=== PATIENT | female | born 1975 | race Caucasian/White ===

== ENCOUNTER 2021-01-01 02:28 | Emergency (ER) | payer MEDICAID ==
[2021-01-01] MEDS ORDERED: Sodium Chloride 0.9% 10 ML Syringe FLUSH PRN (02:54)
[2021-01-01] MEDS ORDERED: Clindamycin Phosphate in D5W 900 MG in Premix Bag 1 BAG IV ONE ×2 (02:54)
[2021-01-01] MEDS ORDERED: HYDROmorphone 0.5 MG/0.5 ML Syringe IVPUSH ONE (02:54)
[2021-01-01] MEDS ORDERED: Ketorolac 30 MG/ML SDV IVPUSH SCH (03:00)
--- NOTE | 2021-01-01 03:03 | EDM.PDOC ---
ED HPI GENERAL MEDICAL PROBLEM - General Chief Complaint: ENT Problem Stated Complaint: TOOTH PAIN Time Seen by Provider: 01/01/21 02:45 Source of Information: Reports: Patient, RN Notes Reviewed - History of Present Illness INITIAL COMMENTS - FREE TEXT/NARRATIVE: 45 yr old female comes in with dental pain that started about 3 days ago. Has become much worse yesterday and this morning. No fever or chills. Swelling has started in the last 12 to 24 hrs. Left Lower Tooth/Teeth Pain Score (Numeric/FACES): 10 - Related Data Allergies Allergy/AdvReac Type Severity Reaction Status Date / Time bupropion [From Wellbutrin] Allergy Rash Verified 01/01/21 02:42 Home Meds: Home Meds Clindamycin HCl 300 mg PO Q6HR #30 capsule 01/01/21 [Rx] Hydrocodone/Acetaminophen [HYDROcodone-Acetaminophen 5-325 MG] 1 each PO Q4HR PRN #20 tab 01/01/21 [Rx] ED ROS ENT - Review of Systems Review Of Systems: See Below Constitutional: Denies: Fever, Chills HEENT: Reports: Dental Pain Respiratory: Reports: No Symptoms Cardiovascular: Reports: No Symptoms GI/Abdominal: Reports: No Symptoms Musculoskeletal: Reports: No Symptoms Skin: Denies: Rash Neurological: Reports: No Symptoms ED EXAM, ENT - Physical Exam Exam: See Below General Appearance: Alert, Anxious, Moderate Distress Mouth/Throat: Dental Pain (there is gum swelling of L lower post molar laterally suggestive of early abcess formation) Head: Facial Swelling (L lower jaw) Respiratory/Chest: No Respiratory Distress Extremities: Normal Inspection Skin: Warm, Dry, Normal Color, No Rash Course - Vital Signs Last Recorded V/S: Last Vital Signs Temp 97.5 F 01/01/21 02:36 Pulse 100 01/01/21 02:36 Resp 18 01/01/21 02:36 BP 140/97 H 01/01/21 02:36 Pulse Ox 100 01/01/21 02:36 - Orders/Labs/Meds Orders: Active Orders 24 hr Category Date Time Status Peripheral IV Insertion Adult [OM.PC] Stat Oth 01/01/21 02:53 Ordered Meds: Medications Discontinued Medications Generic Name Dose Route Start Last Admin Trade Name Freq PRN Reason Stop Dose Admin Hydromorphone HCl 0.5 mg 01/01/21 02:54 01/01/21 03:08 Hydromorphone 0.5 Mg/0.5 Ml Syringe IVPUSH 01/01/21 02:55 0.5 mg ONETIME ONE Administration Clindamycin Phosphate 900 mg/ 50 mls @ 100 mls/hr 01/01/21 02:54 01/01/21 03:11 Premix IV 01/01/21 03:23 100 mls/hr ONETIME ONE Administration Ketorolac Tromethamine 30 mg 01/01/21 03:00 01/01/21 03:09 Ketorolac 30 Mg/Ml Sdv IVPUSH 30 mg ONETIME CHRISTEN Administration Sodium Chloride 10 ml 01/01/21 02:54 01/01/21 03:13 Sodium Chloride 0.9% 10 Ml Syringe FLUSH 10 ml ASDIRECTED PRN Administration Keep Vein Open Departure - Departure Time of Disposition: 03:30 Disposition: Home, Self-Care 01 Condition: Fair Clinical Impression: Pain, dental, Dental abscess - Discharge Information Prescriptions: Clindamycin HCl 300 mg PO Q6HR #30 capsule Hydrocodone/Acetaminophen [HYDROcodone-Acetaminophen 5-325 MG] 1 each PO Q4HR PRN #20 tab PRN Reason: Pain Instructions: Dental Abscess Referrals: PCP,Not In Area [Primary Care Provider] - Forms: ED Department Discharge Additional Instructions: clindamycin 300 mg 4 times daily for 1 week or until gone. Alternate tylenol and ibuprofen or aleve for discomfort. You may take hydrocodone instead of tylenol for severe pain. Do not drive or work when taking hydrocodone. Prescriptions have been sent electronic to [facility]. See your dentist Sunday. Call Sunday AM for appointment. This may need to be drained in 2 to 3 daysor it may open and drain on it's own. Return to ED as needed if unable to get into your dentist. Sepsis Event Note (ED) - Evaluation Sepsis Screening Result: No Definite Risk - Focused Exam Vital Signs: Vital Signs Temp Pulse Resp BP Pulse Ox 01/01/21 02:36 97.5 F 100 18 140/97 H 100 - My Orders Last 24 Hours: My Active Orders 01/01/21 02:53 Peripheral IV Insertion Adult [OM.PC] Stat - Assessment/Plan Last 24 Hours: My Active Orders 01/01/21 02:53 Peripheral IV Insertion Adult [OM.PC] Stat
== END 2021-01-01 03:45 | disposition home or self-care (01) ==
LOC: JD.ED 02:28
DX: K04.7 Periapical abscess without sinus (principal); Z88.8 Allergy status to other drugs, medicaments and biological substances
CPT/HCPCS: 96365; 96375; 99282; J1170; J1885; J3490